=== PATIENT | male | born 1985 | race Caucasian/White ===

== ENCOUNTER 2017-01-14 10:03 | Emergency (ER) | payer OTHER, MEDICAID ==
[2017-01-14 10:07] VITALS: BP 125/85; PULSE 56; RESP 18; TEMP 97.9; O2SAT 99
--- NOTE | 2017-01-14 10:38 | EDPHY ---
H & P Stated Complaint: right upper tooth and jaw pain since 01/13/17 Time Seen by Provider: 01/14/17 10:27 HPI/ROS: Chief complaint: Right-sided jaw pain History of present illness: 31-year-old male presents to the emergency department for right-sided jaw pain. Patient reports the onset of symptoms over the last few days. She describes severe pain not controlled with over-the- counter medications. He is attempting to follow up with a dentist as he believes this is a dental issue. However, he can no longer tolerate the pain. He denies other associated signs or symptoms including no fevers, no swelling of the mouth, face or neck. There is no difficulty opening or closing the mouth , no difficulty swallowing, no difficulty breathing. - Personal History Current Tetanus Diphtheria and Acellular Pertussis (TDAP): Yes - Medical/Surgical History Hx Asthma: No Hx Chronic Respiratory Disease: No Hx Diabetes: No Hx Cardiac Disease: No Hx Renal Disease: No Hx Cirrhosis: No Hx Alcoholism: No Hx HIV/AIDS: No Hx Splenectomy or Spleen Trauma: No Other PMH: Denies - Social History Smoking Status: Current every day smoker - Physical Exam Exam: General Appearance: Alert and no distress. Eyes: Pupils equal and round no injection. Mouth/EENT: Poor dental hygiene. There is no obvious edema. There is no trismus, no drooling, no stridor. The right upper molars are tender to percussion. Rest of the exam is unremarkable. Respiratory: Chest is non tender, lungs are clear to auscultation. Cardiac: regular rate and rhythm Musculoskeletal: Neck is supple and non tender. Extremities have full range of motion and are non tender. Skin: No rashes or lesions. Constitutional: Initial Vital Signs Temperature (C) 36.6 C 01/14/17 10:05 Heart Rate 56 L 01/14/17 10:05 Respiratory Rate 18 01/14/17 10:05 Blood Pressure 125/85 H 01/14/17 10:05 O2 Sat (%) 99 01/14/17 10:05 O2 Delivery Mode Room Air Allergies/Adverse Reactions: No Known Allergies Allergy (Unverified 01/14/17 10:07) Home Medications: Medication Instructions Recorded Hydrocodone/APAP 5/325 [[place] 1 tab PO Q6H #6 tab 01/14/17 5/325 (*)] Medical Decision Making ED Course/Re-evaluation: Patient is seen under the supervision of my secondary supervising physician Dr. Trish Winn. Patient presents to the emergency department for right- sided jaw pain. This appears to be a dental issue. No evidence of significant complications such as severe infection. Patient will be given a short prescription for hydrocodone. He is to follow up with a dentist and referral information is provided. Return precautions are given. Patient voiced understanding and agreement with plan. Differential Diagnosis: Included but not limited to dental alla, periodontal infection including abscess, TMJ disorder - Data Points Medications Given: Discontinued Medications Ibuprofen (Motrin) 800 mg PO EDNOW ONE Stop: 01/14/17 10:40 Last Admin: 01/14/17 10:47 Dose: 800 mg Departure - Departure Disposition: Home, Routine, Self-Care Clinical Impression: Jaw pain Condition: Good Instructions: Dental Abscess (ED), Dental Caries (ED), Temporomandibular Disorder (ED) Additional Instructions: Follow-up with a dentist and an ears Nose and Throat doctor for continued evaluation and care In regards to pain control see the following: Use ibuprofen [600] mg [3] times a day for the next 2-3 days for pain In addition You have been prescribed [[place]] for pain. [[place]] contains Tylenol, do not take extra Tylenol/acetaminophen/Apap with it. It is sedating. Ensure you are practicing good dental hygiene by brushing your teeth multiple times daily and using mouthwash If symptoms worsen or new symptoms develop return to the emergency room for recheck Referrals: NONE *PRIMARY CARE P,. [Primary Care Provider] - As per Instructions [facility] [Outside] - As per Instructions [facility] [Outside] - As per Instructions Dental [facility] [Outside] - As per Instructions Dental [facility] [Outside] - As per Instructions Dental [facility] [Outside] - As per Instructions Miguelangel Gomes MD [Medical Doctor] - As per Instructions Prescriptions: Hydrocodone/APAP 5/325 [[place] 5/325 (*)] 1 tab PO Q6H #6 tab
[2017-01-14] MEDS ORDERED: IBUPROFEN 800 MG TAB PO ONE (10:39)
== END 2017-01-14 10:50 | disposition home or self-care (01) ==
DX: R68.84 Jaw pain (principal); F17.200 Nicotine dependence, unspecified, uncomplicated

== ENCOUNTER 2017-01-23 05:49 | Day surgery (SDC) | payer MEDICAID, OTHER ==
[2017-01-23] MEDS ORDERED: LR 1,000 ML IV ONE (06:07)
[2017-01-23] MEDS ORDERED: LIDOCAINE 1% 2 ML INJ ID PRN (06:07)
[2017-01-23] MEDS ORDERED: BUPIVACAINE 0.25% 30 ML SDV ONE (06:09)
[2017-01-23] MEDS ORDERED: BUPIVACAINE/EPI 0.5% 30 ML SDV ONE (06:09)
[2017-01-23] MEDS ORDERED: LIDO/EPI 2%** Not for Epidural 20 ML MDV ONE (06:10)
[2017-01-23] MEDS ORDERED: CHLORHEXIDINE GLUCONATE 15 ML UDL ONE (06:11)
[2017-01-23 06:37] VITALS: RESP 14
--- NOTE | 2017-01-23 07:06 | PDANEPAE ---
ANE History of Present Illness 31 year old male with poor dentition presents for extraction of teeth. Patient is everyday smoker. ANE Past Medical History - Cardiovascular History Hx Hypertension: No Hx Arrhythmias: No Hx Chest Pain: No Hx Coronary Artery / Peripheral Vascular Disease: No Hx CHF / Valvular Disease: No Hx Palpitations: No - Pulmonary History Hx COPD: No Hx Asthma/Reactive Airway Disease: No Hx Recent Upper Respiratory Infection: No Hx Oxygen in Use at Home: No Hx Sleep Apnea: No Sleep Apnea Screening Result - Last Documented: Negative Pulmonary History Comment: THINKS HE MIGHT HAVE AMADO. SNORES LIKE A FREIGHT TRAIN - Neurologic History Hx Cerebrovascular Accident: No Hx Seizures: No Hx Dementia: No - Endocrine History Hx Diabetes: No Hypothyroid: No Hyperthyroid: No Obesity: no - Renal History Hx Renal Disorders: No - Liver History Hx Hepatic Disorders: No - Neurological & Psychiatric Hx Hx Neurological and Psychiatric Disorders: No - Cancer History Hx Cancer: No - Congenital Disorder History Hx Congenital Disorders: No - GI History GERD: no Hx Gastrointestinal Disorders: No - Other Health History Other Health History: DENTAL EXTRACTION ATTEMPTED 01/21 IN ORAL SURG. OFFICE PT HAD LARYNGOSPASM. PROCEDURE ATTEMPTED X3. ABORTED AND MOVED TO HOSPITAL - Chronic Pain History Chronic Pain: No - Surgical History Prior Surgeries: CIRCUMCISION ANE Review of Systems Review of systems is: negative Review of Systems: - Exercise capacity Exercise capacity: >=4 METS METS (RN): 4 METS ANE Patient History - Allergies Allergies/Adverse Reactions: No Known Allergies Allergy (Unverified 01/14/17 10:07) - Home Medications Home Medications: AMOXICILLIN BID 01/22/17 [Last Taken Unknown] IBUPROFEN TID 01/22/17 [Last Taken Unknown] Percocet 5-325 mg Tablet PRN 01/22/17 [Last Taken Unknown] - NPO status NPO Status: no food or drink >8 hours NPO Since - Liquids (Date): 01/23/17 NPO Since - Liquids (Time): 12:00 NPO Since - Solids (Date): 01/23/17 NPO Since - Solids (Time): 12:00 - Anes Hx Hx Anesthesia Complications (with details): No prior anesthetics - Smoking Hx Smoking Status: Heavy smoker Marijuana use: Yes - Alcohol Use Alcohol Use: Occasionally - Family Anes Hx Family Anes Hx: neg - N/A Family Hx Anesthesia Complications: NEG ANE Labs/Vital Signs - Vital Signs Vital Signs: reviewed preoperatively; see RN documention for details Blood Pressure: 130/83 Heart Rate: 78 Respiratory Rate: 14 O2 Sat (%): 96 Height: 182.88 cm Weight: 79.379 kg ANE Physical Exam - Airway Neck exam: FROM Mallampati Score: Class 2 Mouth exam: poor dentition - Pulmonary Pulmonary: no respiratory distress - Cardiovascular Cardiovascular: regular rate and rhythym - ASA Status ASA Status: II ANE Anesthesia Plan Anesthesia Plan: general endotracheal anesthesia Total IV Anesthesia: No
[2017-01-23] MEDS ORDERED: MIDAZOLAM 2 MG/2 ML VIAL IVP ONE (07:07)
[2017-01-23] MEDS ORDERED: MIDAZOLAM 2 MG/2 ML VIAL ONE (07:08)
[2017-01-23] MEDS ORDERED: fentaNYL 100 MCG/2 ML INJ ONE ×2 (07:12→08:08)
[2017-01-23] MEDS ORDERED: PROPOFOL 200 MG/20 ML VIAL ONE (07:12)
[2017-01-23] MEDS ORDERED: LIDOCAINE 2% JELLY 5 ML TUBE ONE (07:13)
[2017-01-23] MEDS ORDERED: LIDOCAINE 2% 5 ML SDV ONE (07:13)
[2017-01-23] MEDS ORDERED: ROCURONIUM 50 MG/5 ML VIAL ONE (07:13)
[2017-01-23] MEDS ORDERED: PHENYLEPHRINE 0.5% NASAL 15 ML SPRAY ONE (07:14)
[2017-01-23] MEDS ORDERED: SUGAMMADEX SODIUM 200 MG/2 ML VIAL IVP ONE (08:08)
[2017-01-23] MEDS ORDERED: NALOXONE HCL 0.4 MG/ML INJ IVP PRN (08:13)
[2017-01-23] MEDS ORDERED: OXYCODONE/APAP 5/325 TAB PO PRN (08:13)
[2017-01-23] MEDS ORDERED: LR 500 ML IV PRN (08:13)
[2017-01-23] MEDS ORDERED: HYDROmorphONE/DILAUDID 1 MG/ML INJ IVP PRN (08:13)
[2017-01-23] MEDS ORDERED: ONDANSETRON 4 MG/2 ML VIAL IVP PRN (08:13)
[2017-01-23] MEDS ORDERED: fentaNYL 100 MCG/2 ML INJ IVP PRN (08:13)
[2017-01-23] MEDS ORDERED: MEPERIDINE 25 MG/ML SYR IVP PRN (08:13)
--- NOTE | 2017-01-23 09:21 | POSTANESTH ---
Post Anesthetic Evaluation Cardiovascular Status: Normal, Stable, Similar to Pre-Op Cond Respiratory Status: Normal, Stable, Similar to Pre-op Cond. Level of Consciousness/Mental Status: Can Participate in Eval, Alert and Oriented Pain Control: Adequate, Prn Tx Ordered Nausea/Vomiting Control: Adequate, Prn Tx Ordered Complications Possibly Related to Anesthesia: None Noted
[2017-01-23 09:41] VITALS: TEMP 97.5; O2SAT 93
[2017-01-23] MEDS ORDERED: OXYCODONE/APAP 5/325 TAB ONE (10:30)
[2017-01-23 10:43] VITALS: BP 120/78; PULSE 76
== END 2017-01-23 10:40 | disposition home or self-care (01) ==
LOC: UNDOADMIN 05:49 → FSGY 05:49 → F3N 05:49 → EDSTATUS 07:15 → FSGY 10:40
PROVIDERS: ATTEND Dentist Oral and Maxillofacial Surgery
PROC: 0CTW0Z1 Resection of Upper Tooth, Multiple, Open Approach (ICD-10-PCS; principal; 2017-01-23 07:15)
PROC: 0CTX0Z1 Resection of Lower Tooth, Multiple, Open Approach (ICD-10-PCS; principal; 2017-01-23 07:15)
DX: K04.7 Periapical abscess without sinus (principal); F17.210 Nicotine dependence, cigarettes, uncomplicated
CPT/HCPCS: J0171; J2250; J2704; J3010